=== PATIENT | male | born 1995 | race Caucasian/White ===

== ENCOUNTER → 2017-02-22 | Outpatient (CLI) | payer BC ==
--- NOTE | 2017-02-22 10:35 | DIAGNOSTIC IMAGING REPORT ---
TESTICULAR ULTRASOUND HISTORY: TESTICULAR PAIN COMPARISON: None. FINDINGS: Right testis: 4.7 x 3.5 x 2.5 cm. There are no intratesticular masses. Normal color flow. No hydrocele. The epididymis is unremarkable. There is a 2 mm scrotal calcification. Left testis: 4.6 x 3.2 x 2.2 cm. There are no intratesticular masses. Normal color flow. No hydrocele. The epididymis is unremarkable. IMPRESSION: 1. Normal bilateral testes. 2. Incidental note is made of a 2 mm scrotolith. Electronically signed by: Paolo Schulz M.D. 02/22/2017 10:34 AM Dictated Date/Time: 02/22/2017 10:32 AM
== END | disposition home or self-care (01) ==
LOC: C.ULTR 09:41
PROVIDERS: ATTEND Family Medicine
DX: N50.811 Right testicular pain (principal); N50.812 Left testicular pain